=== PATIENT | female | born 1990 | race Caucasian/White ===

== ENCOUNTER → 2018-10-14 14:14 | Outpatient (CLI) | payer OTHER, SELFPAY ==
[2018-10-14 15:10] LABS: Glucose 78 mg/dL (70-100)
[2018-10-14 15:33] LABS: Appearance Urine UA CLEAR; Bilirubin Urine UA NEGATIVE (NEGATIVE); Color Urine UA YELLOW; Glucose Urine UA NEGATIVE (Negative); Ketones Urine UA NEGATIVE (NEGATIVE); Leukocyte Esterase Urine UA 2+ (NEGATIVE); Nitrite Urine UA NEGATIVE (Negative); Occult Blood Urine UA NEGATIVE (Negative); Protein Urine UA NEGATIVE (Negative); Specific Gravity Urine UA <=1.005 (1.000-1.035); Urobilinogen Urine UA 0.2 E.U./dL (0.2)
[2018-10-14 15:46] LABS: RBC Urine None Seen (0-5/HPF)
[2018-10-14 15:47] LABS: Amorphous Sediment Urine 1+; Bacteria Urine Few (2-10); Squamous Epithelial Cell Urine 0-1 /HPF; WBC Urine 1-5/HPF (0-5/HPF)
[2018-10-14 16:56] LABS: Hepatitis B Surface Antigen NEGATIVE s/c (NEGATIVE); Rubella Antibody IgG 1.2 IU/mL (>15)
[2018-10-14 17:03] LABS: HIV 1 and 2 Antibody NEGATIVE (NEGATIVE); Hep C Virus Ab w/Reflex Quant NEGATIVE s/c (NEGATIVE)
[2018-10-14 17:24] LABS: Add Manual Diff / Slide Review NO; Basophils Absolute Auto 0 /uL (0-100); Basophils Percent Auto 0.3 % (0-2); Eosinophils Absolute Auto 200 /uL (0-450); Hematocrit 40.2 % (36-46); Hemoglobin 13.3 g/dL (12.0-16.0); Lymphocytes Absolute Auto 1900 /uL (1100-4500); Lymphocytes Percent Auto 20.9 % (25-40); Mean Corpuscular Hemoglobin 28.7 PG (26-34); Mean Corpuscular Volume 86.9 fL (80-100); Monocytes Absolute Auto 600 /uL (0-900); Monocytes Percent Auto 6.7 % (3-14); Neutrophils Absolute Auto 6300 /uL (1500-7000); Neutrophils Percent Auto 70.1 % (50-75); Platelet Count 260 X10^3/uL (150-400); Red Blood Cell Count 4.62 X10^6/uL (4.0-5.2); Red Cell Distribution Width 13.3 % (11.6-14.8)
[2018-10-16 14:00] LABS: RPR Screen Nonreactive (Nonreactive)
== END ==
DX: Z34.01 Encounter for supervision of normal first pregnancy, first trimester (principal)
CPT/HCPCS: 36415; 80055; 81003; 81015; 82947; 83036; 86703; 86787; 86803; 86850; 86900; 86901; 87086

== ENCOUNTER → 2018-11-30 16:17 | Outpatient (CLI) | payer OTHER, SELFPAY ==
[2018-12-03 12:39] LABS: Sequential Screen 1st Trimeste FINAL RESULT PENDING
== END ==
DX: Z34.02 Encounter for supervision of normal first pregnancy, second trimester (principal); Z3A.13 13 weeks gestation of pregnancy
CPT/HCPCS: 36415; 84163; 84702

== ENCOUNTER → 2018-12-28 16:12 | Outpatient (CLI) | payer OTHER, SELFPAY ==
[2019-01-01 11:40] LABS: Sequential Screen 2nd Trimeste SCREEN NEGATIVE
== END ==
DX: Z34.82 Encounter for supervision of other normal pregnancy, second trimester (principal); Z3A.17 17 weeks gestation of pregnancy
CPT/HCPCS: 36415; 82105; 82677; 84163; 84702; 86336

== ENCOUNTER → 2019-03-05 12:37 | Outpatient (CLI) | payer OTHER, SELFPAY ==
[2019-03-05 14:22] LABS: Hematocrit 37.2 % (36-46); Hemoglobin 12.8 g/dL (12.0-16.0)
[2019-03-05 14:36] LABS: GTT (PREG) 1 Hour PP 50gm Dose 96 mg/dL (76-139)
== END ==
DX: O26.899 Other specified pregnancy related conditions, unspecified trimester (principal); Z67.91 Unspecified blood type, Rh negative
CPT/HCPCS: 36415; 82950; 85014; 85018; 86850

== ENCOUNTER → 2019-04-30 15:26 | Outpatient (CLI) | payer OTHER, SELFPAY ==
[2019-05-01 13:20] LABS: Strep Grp B PCR NEG for Grp B Strep
== END ==
DX: Z34.00 Encounter for supervision of normal first pregnancy, unspecified trimester (principal); Z3A.35 35 weeks gestation of pregnancy
CPT/HCPCS: 87653

== ENCOUNTER 2019-06-04 19:59 | Inpatient (IN) | payer OTHER, SELFPAY ==
[2019-06-04] MEDS: miSOPROStoL 25 MCG TABLET VAG (21:10)
[2019-06-04 21:15] LABS: Add Manual Diff / Slide Review NO; Basophils Absolute Auto 0 /uL (0-100); Basophils Percent Auto 0.5 % (0-2); Eosinophils Absolute Auto 100 /uL (0-450); Hematocrit 37.4 % (36-46); Hemoglobin 13.2 g/dL (12.0-16.0); Lymphocytes Absolute Auto 1600 /uL (1100-4500); Lymphocytes Percent Auto 18.2 % (25-40); Mean Corpuscular HGB Conc 35.2 % (30-36); Mean Corpuscular Hemoglobin 30.6 PG (26-34); Mean Corpuscular Volume 87.1 fL (80-100); Monocytes Absolute Auto 500 /uL (0-900); Monocytes Percent Auto 5.8 % (3-14); Neutrophils Absolute Auto 6500 /uL (1500-7000); Neutrophils Percent Auto 74.5 % (50-75); Platelet Count 152 X10^3/uL (150-400); White Blood Cell Count 8.8 X10^3/uL (4.5-11.0)
[2019-06-05] MEDS: miSOPROStoL 25 MCG TABLET VAG (01:49)
[2019-06-05 02:26] VITALS: BP 127/74
--- NOTE | 2019-06-05 07:33 | P.HPOB_ITS ---
OB HPI History of Present Condition Chief complaint: : 1 Para: 0 Estimated Date of Delivery: 06/04/19 Estimated Gestational Age (weeks): 40 Narrative: Elizabeth Munoz is a 28 year old @40+1 admitted for induction overnight after being found to have oligohydramnios at her scheduled office visit yesterday. The patient denied any signs or symptoms of ROM, and denied VB, LOF, decreased movement, [place], visual changes, abdominal pain, fevers, chills, or any other complaints obstetrical or otherwise. The patient had no signs or symptoms of PIH, and had had an otherwise uncomplicated preg asia. She has no other contributory medical or surgical history. Evaluation Evaluation Laboratory results: Laboratory Tests 06/04/19 06/04/19 21:00 21:00 WBC 8.8 RBC 4.30 Hgb 13.2 Hct 37.4 MCV 87.1 MCH 30.6 MCHC 35.2 RDW 13.0 Plt Count 152 Neut % (Auto) 74.5 Lymph % (Auto) 18.2 L [place] % (Auto) 5.8 Eos % (Auto) 1.0 L Baso % (Auto) 0.5 Neut # (Auto) 6500 Lymph # (Auto) 1600 [place] # (Auto) 500 Eos # (Auto) 100 Baso # (Auto) 0 Blood Type O Negative Antibody Screen Negative GBS not collected in . PFSH Family History Mother History of hysterectomy Social History Smoking Status: Never smoker Meds Home Medications and Allergies Home Medications Medication Instructions Recorded Confirmed Type prenat.vits,mike,aqp-znxs-fufxj 1 tab PO DAILY 10/14/18 10/14/18 History breast pump #1 each 04/16/19 04/16/19 Rx Allergies Allergy/AdvReac Type Severity Reaction Status Date / Time No Known Drug Allergies Allergy Verified 10/14/18 14:19 Review of Systems Review of Systems Narrative: ROS negative as per HPI during office visit and on initial admission to Center. At time of this morning's evaluation, patient in transition to second stage during unmedicated labor, and only OB ROS repeated due to patient status. ROS Unobtainable: other Cardiovascular Cardiovascular: Reports system reviewed; no additional complaints, except as documented Respiratory Respiratory: Reports system reviewed and no additional complaints, except as documented Gastrointestinal Gastrointestinal: Reports system reviewed and no additional complaints, except as documented Genitourinary Genitourinary: Reports system reviewed and no additional complaints, except as documented Musculoskeletal Musculoskeletal: Reports system reviewed; no additional complaints, except as documented Neurologic Neurologic: Reports system reviewed and no additional complaints, except as documented Exam Vital Signs (past 8 hours): - 06/05/19 02:26 Blood Pressure 127/74 127-138/74, HR 65-87, 36.6 C Const General: cooperative, healthy appearing and comfortable Resp Auscultation: clear to auscultation bilaterally Cardio Rate: regular rate Rhythm: regular rhythm GI Palpation: soft and No tender External Female Exam: external appearance normal and normal appearance of the urethra OB/External & Speculum: deferred, external exam normal, no bleeding and no herpetic lesions Manual OB Exam: dilated 1, effaced 50%, station -2 and other (soft, mid position) Uterus Location (Fundal Height): 37 Presentation: vertex Estimated Weight (lbs): 7 Amniotic Fluid: no fluid Other: EFW 7#8. Cat 2 EFM intermittently overnight for rare late decelerations, but largely cat 1, reactive, baseline 140. ctx no q2-4 s/p 2 doses v cytotec, no pitocin. Objective Labs Result Diagrams: 06/04/19 21:00 Labs: Laboratory Results - last 24 hr 06/04/19 06/04/19 21:00 21:00 WBC 8.8 RBC 4.30 Hgb 13.2 Hct 37.4 MCV 87.1 MCH 30.6 MCHC 35.2 RDW 13.0 Plt Count 152 Neut % (Auto) 74.5 Lymph % (Auto) 18.2 L [place] % (Auto) 5.8 Eos % (Auto) 1.0 L Baso % (Auto) 0.5 Neut # (Auto) 6500 Lymph # (Auto) 1600 [place] # (Auto) 500 Eos # (Auto) 100 Baso # (Auto) 0 Blood Type O Negative Antibody Screen Negative Assessment and Plan Assessment and Plan Assessment and Plan narrative: This patient is admitted for induction of labor for oligohydramnios, now progressed to the second stage of labor after 2 doses of vaginal cytotec and SROM for minimal clear fluid. Anticipate vaginal delivery. - No note of GBS status, no ppx as patient at term - Routine intrapartum care
[2019-06-05] MEDS: LACTATED RINGERS 1,000 ML 100 ML IV (07:45)
[2019-06-05] MEDS: LIDOCAINE 1% 20 ML (08:10)
--- NOTE | 2019-06-05 08:44 | PM.OBPRVD ---
 Events: Oligohydramnios Labor & Delivery Delivery date: 06/05/19 Intrapartal events: Acceleration Cervical ripening method: per misoprostal protocol Induction method: none Delivery monitor: external FHT Route of delivery: L&D Laceration Description: Periurethral - 1st Degree and Perineal - 2nd Degree Delivery repair: vicryl Estimated blood loss (mL): 350 Anesthesia type: None Narrative: This patient is a 28-year-old G1 now P1 status post uncomplicated vaginal delivery of a healthy baby boy. The patient presented to clinic yesterday for routine follow-up at 40 weeks 0 days gestation, was found have oligohydramnios with an CHARLENE of 1.5. The patient was directed to Labor and delivery, where she was successfully induced with 2 doses of vaginal Cytotec, after which she labored without augmentation. The patient progressed to fully dilated and pushed for 2 contractions, delivering a healthy baby boy with a body cord x2 without any other complications. The shoulders delivered with ease. An extensive second-degree perineal laceration was repaired with 2 0 Vicryl in the usual fashion. Rectal exam confirmed an intact sphincter. There were no other intrapartum or immediate complications. [place] Baby 1: Infant gender: Male Presentation: vertex position: Left Occiput Transverse Placenta delivery description: Spontaneous cord vessel description: Around Body x2 score (1 min): 8 score (5 min): 9 Narrative: cried at delivery, skin to skin with mom without issue. Plan for aftercare: The patient had otherwise an uncomplicated , and is for routine care.
[2019-06-05] MEDS: DERMOPLAST SPRAY 20% 60 ML 1 SPRAY TOP (09:21)
[2019-06-05] MEDS: IBUPROFEN 600 MG TABLET PO ×3 (09:21→23:36)
[2019-06-06 07:38] LABS: Add Manual Diff / Slide Review NO; Basophils Absolute Auto 0 /uL (0-100); Basophils Percent Auto 0.3 % (0-2); Eosinophils Absolute Auto 100 /uL (0-450); Eosinophils Percent Auto 1.2 % (2-4); Hematocrit 29.5 % (36-46); Hemoglobin 10.3 g/dL (12.0-16.0); Lymphocytes Absolute Auto 1600 /uL (1100-4500); Lymphocytes Percent Auto 15.6 % (25-40); Mean Corpuscular Hemoglobin 30.7 PG (26-34); Mean Corpuscular Volume 87.5 fL (80-100); Monocytes Absolute Auto 600 /uL (0-900); Monocytes Percent Auto 5.9 % (3-14); Neutrophils Absolute Auto 7800 /uL (1500-7000); Platelet Count 137 X10^3/uL (150-400); Red Blood Cell Count 3.37 X10^6/uL (4.0-5.2); White Blood Cell Count 10.1 X10^3/uL (4.5-11.0)
[2019-06-06] MEDS: IBUPROFEN 600 MG TABLET PO (08:54)
--- NOTE | 2019-06-06 10:32 | P.PNOB_ITS ---
Subjective - OB Subjective Patient comments: no complaints [place] baby status: other (tachypnia overnight now resolved, evaluated for ?TTN) Date Patient Seen: 06/06/19 Time Patient Seen: 10:33 Exam Vital Signs (past 8 hours): 135/83, 100, 36.4 Const General: cooperative, healthy appearing and comfortable Resp Effort & Inspection: normal respiratory effort Auscultation: clear to auscultation bilaterally Cardio Rate: regular rate Rhythm: regular rhythm GI Palpation: soft Rectal Exam: No tenderness External Female Exam: external appearance normal and exteral laceration (Laceration well approximated, no erythema, no drainage. Sutures intact. ) Uterus Location (Fundal Height): 3 (Fundus firm and well below u) Extrem Other: 1+ edema on both lower extremities, symmetrical bilaterally Objective Labs Result Diagrams: 06/06/19 07:31 Labs: Laboratory Results - last 24 hr 06/06/19 06/06/19 07:31 07:31 WBC 10.1 RBC 3.37 L Hgb 10.3 L Hct 29.5 L MCV 87.5 MCH 30.7 MCHC 35.0 RDW 13.0 Plt Count 137 L Neut % (Auto) 77.0 H Lymph % (Auto) 15.6 L [place] % (Auto) 5.9 Eos % (Auto) 1.2 L Baso % (Auto) 0.3 Neut # (Auto) 7800 H Lymph # (Auto) 1600 [place] # (Auto) 600 Eos # (Auto) 100 Baso # (Auto) 0 Maternal Bleed Negative Assessment & Plan Assessment and Plan (1) Vaginal delivery: Status: Acute Assessment and plan: This patient is recovering well from her vaginal delivery, after an induction of labor at 40 weeks for oligohydramnios. The patient is meeting all goals including good pain control, moderate lochia, tolerating p.o., voiding and passing flatus normally, ambulating appropriately, and with no other concerns or complaints. We discussed plan of care and precautions for return, the patient vocalized understanding. The patient is being assess for the need for RhoGAM prior to discharge. Patient will follow up in clinic in 4-6 weeks, or as needed with any concerns. Discussed the patient can contact the clinic or the physician on-call, or present to the emergency room as necessary. -patient for discharge today -routine care Current Visit: Yes Plan day: 1 plan OB: routine care Time Spent With Patient Time: Total time spent is greater than 50% in coordination of care (as documented) at patient's floor/unit and/or counseling patient: Time with patient: 15-24 minutes
--- NOTE | 2019-06-06 10:49 | PM.DS.1 ---
History of Present Illness History of Present Illness Date Patient Seen: 06/06/19 Time Patient Seen: 10:49 Chief complaint: maternity Narrative: This patient is a 20-year-old G1 now P1 admitted for induction of labor at 40 weeks for oligohydramnios. The patient underwent an uncomplicated vaginal delivery with repair of a second-degree perineal laceration, and is recovering well on day 1. Patient will be discharged with routine precautions. Discharge Providers Provider Date of admission: 06/04/19 19:59 Discharge Date: 06/06/19 Primary care physician: Miguel Foster MD Discharge provider: Nela Mcghee MD Summary Hospital Course Discharge Diagnosis: Vaginal delivery Hospital Course: See HPI Status at Discharge Cognitive/behavioral status at discharge: at baseline, oriented Functional status at discharge: independent ambulation Time Spent with Patient Time spent: Less than 30 minutes Exam Vital Signs (past 8 hours): See progress note from day of discharge. Objective Labs Result Diagrams: 06/06/19 07:31 Labs: Laboratory Results - last 24 hr 06/06/19 06/06/19 07:31 07:31 WBC 10.1 RBC 3.37 L Hgb 10.3 L Hct 29.5 L MCV 87.5 MCH 30.7 MCHC 35.0 RDW 13.0 Plt Count 137 L Neut % (Auto) 77.0 H Lymph % (Auto) 15.6 L [place] % (Auto) 5.9 Eos % (Auto) 1.2 L Baso % (Auto) 0.3 Neut # (Auto) 7800 H Lymph # (Auto) 1600 [place] # (Auto) 600 Eos # (Auto) 100 Baso # (Auto) 0 Maternal Bleed Negative Discharge Plan Discharge Plan Patient Disposition: Home Discharge Med Rec/Prescriptions Prescriptions: Continued prenat.vits,mike,jkf-kkek-bfgzq tablet 1 tab PO DAILY RF: 0 (DME) breast pump [Pump In Style Advanced] device See Rx Instructions [id number] .MEDSUPPLY Qty: 1 RF: 0 Follow up/Referrals: Miguel Foster MD [Primary Care Provider] - 1 Month Provider Discharge Instructions Diet: Regular Activity: Nothing in the vagina for 6 weeks. Avoid heavy lifting for 6 weeks. If you developed increased bleeding soaking more than 2 pads per hour, fevers, chills, drainage, increasing abdominal pain, headaches, spots in her vision, chest pain, or any other symptoms or concerns, call the office number or come to the emergency room. Skin/Wound/Dressing Care Skin care: Keep perineum clean and dry. Report to your healthcare provider any signs of infection, such as:: chills, fever, night sweats, increased pain, unusual drainage and unusual redness Discharge Data Primary Care Provider: Miguel Foster
[2019-06-06 14:10] VITALS: BP 127/74; PULSE 102; RESP 19; TEMP 36.7
[2019-06-06] MEDS: RHO(D) IMMUNE GLOBULIN 1,500 UNIT SYRINGE 1500 UNIT IM (15:14)
== END 2019-06-06 16:04 | disposition home or self-care (01) | DRG 807 ==
PROVIDERS: Obstetrics & Gynecology; Admitting Provider Obstetrics & Gynecology; Visit Provider Obstetrics & Gynecology
DX: O41.03X0 Oligohydramnios, third trimester, not applicable or unspecified (principal); Z37.0 Single live birth; Z3A.40 40 weeks gestation of pregnancy; O70.1 Second degree perineal laceration during delivery
CPT/HCPCS: 59050; 59200; 59400; 59409; 85025; 85461; 86850; 86900; 86901; G0379; J2790

== ENCOUNTER 2019-12-17 15:46 | Emergency (ER) | payer OTHER, SELFPAY ==
[2019-12-17 15:57] VITALS: BP 119/72; PULSE 72; RESP 16; TEMP 36.8; O2SAT 99; BMI 30.8
--- NOTE | 2019-12-17 16:21 | ED.ABDPAIN ---
HPI - Abdominal Pain <KIMBERLY Purvis - Last Filed: 12/17/19 18:34> General Chief Complaint: Abdominal Pain Stated Complaint: galbladder issues, sent by physician Time Seen by Provider: 12/17/19 16:13 Source: patient Mode of arrival: Family Vehicle Limitations: no limitations History of Present Illness HPI narrative: The patient is a 29-year-old female nonsmoker presents with her for chief complaint of abdominal pain and gallbladder issues. She was seen at a walk-in clinic and [place] and sent to the emergency department for evaluation of possible acute cholecystitis. She had an ultrasound on lab work, which were faxed in. Patient demonstrates no leukocytosis, bilirubin of 1.9. She also of 204. A CBD of 8.1. As well as multiple gallstones. She denies any fevers. Complains of nausea, no vomiting. She states that she last had anything any head pain a.m., last water at noon. Patient is breast-feeding at this time she is 6 months . Related Data Home Medications Medication Instructions Recorded Confirmed prenat.vits,mike,rkr-ywly-erdzl 1 tab PO DAILY 10/14/18 12/15/19 Previous Rx's Medication Instructions Recorded breast pump #1 each 04/16/19 hydrocodone-acetaminophen [[place]] 1 tab PO Q4-6H PRN #14 tab 12/17/19 ondansetron 4 mg PO Q6H PRN #20 tab 12/17/19 Allergies Allergy/AdvReac Type Severity Reaction Status Date / Time No Known Drug Allergies Allergy Verified 12/17/19 16:04 Patient History <KIMBERLY Purvis - Last Filed: 12/17/19 18:34> Medical History Acute bilateral low back pain without sciatica (Acute) Pelvic somatic dysfunction (Acute) Segmental and somatic dysfunction of abdomen and other regions (Acute) Segmental and somatic dysfunction of lumbar region (Acute) Segmental and somatic dysfunction of sacral region (Acute) Segmental and somatic dysfunction of thoracic region (Acute) Family History Mother History of hysterectomy Social History Smoking Status: Never smoker Smoking Status: Never smoker alcohol intake frequency: holidays/special occasions only Substance Use Type: does not use Exam <KIMBERLY Purvis - Last Filed: 12/17/19 18:34> Narrative Exam Narrative: GENERAL: This is a well-nourished, well-developed patient, no acute distress HEAD: Atraumatic. Normocephalic. No temporal or scalp tenderness. EYES: Pupils equal round and reactive. Extraocular motions intact. No scleral icterus. No injection or drainage. ENT: Nose without bleeding, purulent drainage or septal hematoma. Throat without erythema, tonsillar hypertrophy or exudate. Uvula midline. Airway patent. NECK: Trachea midline. No JVD or lymphadenopathy. Supple, nontender, no meningeal signs. CARDIOVASCULAR: Regular rate and rhythm RESPIRATORY: Clear to auscultation. Breath sounds equal bilaterally. No wheezes, rales, or rhonchi. GASTROINTESTINAL: Abdomen soft, tenderness right upper quadrant with slight guarding, nondistended. No hepato-splenomegaly, or palpable masses. Active bowel sounds all 4 quadrants EXTREMITIES: No clubbing, cyanosis, or edema. No joint tenderness, effusion, or edema noted. BACK: Nontender without deformity or crepitance. No flank tenderness. NEURO: AOx3. SKIN: No rash or erythema visible skin Initial Vital Signs Initial Vital Signs: Vital Signs Temperature 98.3 F 12/17/19 15:57 Pulse Rate 72 12/17/19 15:57 Respiratory Rate 16 12/17/19 15:57 Blood Pressure 119/72 12/17/19 15:57 Pulse Oximetry 99 12/17/19 15:57 <Humberto Latham MD - Last Filed: 12/19/19 15:19> Initial Vital Signs Initial Vital Signs: Vital Signs Temperature 98.3 F 12/17/19 15:57 Pulse Rate 72 12/17/19 15:57 Respiratory Rate 16 12/17/19 15:57 Blood Pressure 119/72 12/17/19 15:57 Pulse Oximetry 99 12/17/19 15:57 Scores <KIMBERLY Purvis - Last Filed: 12/17/19 18:34> GCS Luc[place] coma scale eye opening: Spontaneous [place] coma scale verbal response: Orientated Luc[place] coma scale motor response: Obey commands Luca coma scale total score: 15 Course <PRABHJOT Purvis-BC - Last Filed: 12/17/19 18:34> Consultations Consultation #1: Dr Jacome in to see patient Time: 16:21 Vital Signs Vital signs: Vital Signs - 8 hr 12/17/19 15:57 12/17/19 18:10 Temperature 98.3 F Pulse Rate 72 69 Respiratory Rate 16 18 Blood Pressure 119/72 134/76 Pulse Oximetry 99 96 <Humberto Latham MD - Last Filed: 12/19/19 15:19> Vital Signs Vital signs: Vital Signs - 8 hr 12/17/19 15:57 12/17/19 18:10 Temperature 98.3 F Pulse Rate 72 69 Respiratory Rate 16 18 Blood Pressure 119/72 134/76 Pulse Oximetry 99 96 MDM - Abdominal Pain <PRABHJOT Purvis-BC - Last Filed: 12/17/19 18:34> MDM Narrative Medical decision making narrative: The patient is a 29-year-old female who presents for chief complaint of all bladder issues from an outside clinic. She presents with lab work and ultrasound already done. She was evaluated in the emergency department by Dr. Jacome from surgery, who offered to admit the patient for a cholecystectomy. However the patient elected to go home rather than come into the hospital as she is things such as like to take care of at home regarding her child. I discussed at length, illness, etcetera. Patient states understanding of all these risks, and states she had a conversation already with Dr. Yandy arias. I did give her prescription of pain and nausea medications. Discussed at length the importance of following up with her PCP as well as surgery. Patient has no questions or concerns upon discharge and states understanding of return precautions as well as follow-up care. Discussed very strict return precautions for this patient. Discharge Plan Departure Patient Disposition: Home Clinical Impression: Gall stones, Common bile duct dilatation, Epigastric pain, Transaminitis, Elevated alkaline phosphatase level, Elevated bilirubin Discharge Date/Time: 12/17/19 18:24 Instructions: Gallstones (Alternative Therapy), DI for Gallstones, DI for Abdominal Pain-Adult Activity Restrictions/Additional Instructions: Thank you for trusting us with your care today Please follow-up with [facility] and Dr. Jacome. I have included the contact information below. I sent pain and nausea medications to [facility] in [place] Please come back to the emergency department for any acute concerns including fever, inability keep down fluids, sudden worsening pain etcetera. As discussed, your taking a risk by leaving the hospital without your gallbladder surgery today. However please come back to the emergency department for any acute concerns. I also suggest following up with PCP. I have given you a prescription of a narcotic for pain. Be aware that this can be constipating and sedating. I encouraged taking with a stool softener, pushing fluids and fiber. Do not take and drive, operate heavy machinery, etc. Do not combine it with any other sedating substances such as alcohol. The combination of narcotics and alcohol and/or other sedatives can be lethal. Please be aware that we do not provide refills of controlled substances in the emergency department. Please follow up with her primary care provider. Prescriptions: New hydrocodone-acetaminophen [[place]] 5-325 mg tablet 1 tab PO Q4-6H PRN (Reason: pain) Qty: 14 RF: 0 ondansetron 4 mg tablet,disintegrating 4 mg PO Q6H PRN (Reason: nausea and vomiting) Qty: 20 RF: 0 No Action prenat.vits,mike,kjk-kslg-[id number] tablet 1 tab PO DAILY RF: 0 (DME) breast pump [Pump In Style Advanced] device See Rx Instructions [id number] .MEDSUPPLY Qty: 1 RF: 0 Referrals: [facility] [Provider Group] Patricia Jacome MD [Physician] -
--- NOTE | 2019-12-17 16:40 | PM.HP.1 ---
History of Present Illness History of Present Illness Date Patient Seen: 12/17/19 Time Patient Seen: 16:40 Chief complaint: galbladder issues, sent by physician Narrative: This is a 29 yo woman who is six months out from [facility] of a healthy baby. She has had new colicky epigastric and mid upper back pain for the past 3-4 months. The pain is sharp and burning, it comes on in the middle of the night, or sometimes after eating. Today the pain came on after eating a breakfast of three scrambled eggs with cheese. She denies any fevers or nausea associated with these attacks. She went to urgent care today to be seen for her pain. She had an US and labs done which revealed gall stones, a CBD of 8.1mm, and elevated LFT's, alk phos of 204, and bilirubin of 1.9. Her pain has improved since she had some pain medicine at the urgent care. ROS: She is breast feeding. 13 system review is otherwise negative other than as mentioned in HPI and below. PMH: She denies other medical problems. PSH: Past surgeries include only wisdom teeth extraction. Meds: She takes vitamin and pain medication given for this symptom. Allergies: She denies any allergies. ' FMH: She denies family history of biliary disorders. SOC: She denies tobacco use; reports occasional EtOH, denies any illicit drug use. PE: GENERAL: Alert, comfortable. Appears stated age. Answers questions promptly and appropriately. Vital signs noted. HENT: Normocephalic, atraumatic. Hearing intact. No jaundice EYES: Conjunctiva pink, sclera white, no periorbital swelling. CARDIOVASCULAR: Regular rate. No pedal edema. RESPIRATORY: Non-tachypneic, breathing comfortably on room air. GASTROINTESTINAL: Abdomen soft and non-distended; rounded; mild epigastric TTP; no masses; no surgical scars GENITALURINARY: No flank tenderness. MUSCULOSKELETAL: Equal tone and mass bilaterally. SKIN: Warm, dry, soft, appropriate color for ethnicity. No other lesions, rashes, or wounds. NEURO: Alert and Oriented X 3. No gross sensory deficits, or cognitive issues. PSYCH: Appropriate affect and mood. Patient History Medical History Acute bilateral low back pain without sciatica (Acute) Pelvic somatic dysfunction (Acute) Segmental and somatic dysfunction of abdomen and other regions (Acute) Segmental and somatic dysfunction of lumbar region (Acute) Segmental and somatic dysfunction of sacral region (Acute) Segmental and somatic dysfunction of thoracic region (Acute) Family & Social History Family History Mother History of hysterectomy Safety & Behavioral: Feels Safe in Current Yes Environment Been Physically Hurt or No Threatened By a Person Tobacco & Substance use: Smoking Status Never smoker alcohol intake frequency holiday/special occasion Substance Use Type does not use Meds Home Medications and Allergies Home Medications Medication Instructions Recorded Confirmed Type prenat.vits,mike,cvu-udqn-dxzcc 1 tab PO DAILY 10/14/18 12/15/19 History breast pump #1 each 04/16/19 12/15/19 Rx Allergies Allergy/AdvReac Type Severity Reaction Status Date / Time No Known Drug Allergies Allergy Verified 12/17/19 16:04 Exam Vital Signs (past 8 hours): - 12/17/19 15:57 Temperature 98.3 F Pulse Rate 72 Respiratory Rate 16 Blood Pressure 119/72 Pulse Oximetry 99 Oxygen Delivery Method Room Air Objective Imaging US - abdomen: My impression: RUQ US: gall stones, GB wall thickness 6mm; CBD 8.1mm Radiologist's impression: RUQ US: gall stones, GB wall thickness 6mm; CBD 8.1mm; negative sonographic miller sign Labs Labs: Outside labs reviewed and uploaded in system. Normal WBC Elevated transaminases Alk phos 204 Bilirubin 1.9 Assessment & Plan Assessment and plan (1) Gall stones: Problem details: The patient's exam and labs are consistent with acute on chronic cholelithiasis with possible choledocholithiasis. I had a long discussion with the patient and her regarding her condition. We reviewed risks and benefits of laparoscopic, possible open cholecystectomy. I karen them pictures and answered their questions. Risks of bleeding, infection, damage to nearby structures, need for additional procedures, need for ERCP, need for transfer to tertiary hospital, cholangitis, liver failure were discussed. I explained that her labs are concerning for possible common bile duct stones. We would need to repeat labs in the morning to make sure she isn't showing signs of obstruction. Depending on the lab results she may need an MRI and may need transfer to another hospital for ERCP. If her labs are fine, she would likely be able to go home by tomorrow afternoon. Plan: Rapid covid test Urine HCG OR this PM for lap vicki Addendum: the patient has decided that she does not want to have surgery this evening. She would like to schedule it for a future time. I have explained the risks of ongoing or worsening pain, CBD obstruction, ascending cholangitis, jaundice, need for emergency surgery prior to scheduled surgery can be done. I have recommended that if her symptoms worsen she should return to the ER. She will likely need pain med and anti emetic. She should call the [facility] office on Friday and ask to have surgery scheduled. She will need a repeat CMP prior to surgery as well as covid testing 72 hours prior to scheduled surgery day. Current visit: Yes Status: Acute (2) Common bile duct dilatation: Current visit: Yes Status: Acute (3) Epigastric pain: Current visit: Yes Status: Acute (4) Transaminitis: Current visit: Yes Status: Acute (5) Elevated alkaline phosphatase level: Current visit: Yes Status: Acute (6) Elevated bilirubin: Current visit: Yes Status: Acute Quality VTE Deep Vein Thrombosis/Pulmonary Embolism Present on Admission: No
[2019-12-17 18:10] VITALS: BP 134/76; PULSE 69; RESP 18; O2SAT 96
== END 2019-12-17 18:24 | disposition home or self-care (01) ==
PROVIDERS: Emergency Provider Nurse Practitioner Family
DX: K80.80 Other cholelithiasis without obstruction (principal); R74.0 Nonspecific elevation of levels of transaminase and lactic acid dehydrogenase [LDH]; E80.7 Disorder of bilirubin metabolism, unspecified; R74.8 Abnormal levels of other serum enzymes
CPT/HCPCS: 36415; 99283; 99284

== ENCOUNTER 2019-12-21 21:22 | Emergency (ER) | payer OTHER, SELFPAY ==
[2019-12-21 21:30] VITALS: BP 133/96; PULSE 92; RESP 20; TEMP 36.9; O2SAT 96
--- NOTE | 2019-12-21 21:34 | DI.RAD.S_ITS ---
PROCEDURE: XR CHEST 1V INDICATIONS: Shortness of breath TECHNIQUE: One view of the chest was acquired. COMPARISON: None. FINDINGS: Surgical changes and devices: None. Lungs and pleura: Lungs are clear. No pleural effusions or pneumothorax. Mediastinum: Mediastinal contours appear normal. Heart size is normal. Bones and chest wall: No suspicious bony lesions. Overlying soft tissues appear unremarkable. IMPRESSION: No acute cardiopulmonary disease process. Dictated by: Ursula Reveles MD, PhD on 12/22/2019 at 7:59 Approved by: Ursula Reveles MD, PhD on 12/22/2019 at 8:03
[2019-12-21 22:03] LABS: Alanine Aminotransferase 339 IU/L (<35); Albumin 4.8 g/dL (3.5-5.0); Albumin Globulin Ratio 1.3 (1.0-2.8); Alkaline Phosphatase 290 U/L (38-126); Aspartate Aminotransferase 141 IU/L (14-36); Bilirubin Total 2.6 mg/dL (0.2-1.3); Blood Urea Nitrogen 8 mg/dL (7-17); Calcium 10.2 mg/dL (8.4-10.2); Carbon Dioxide 26 mmol/L (22-32); Chloride 102 mmol/L (98-107); Estimated Glomerular Filt Rate > 60.0 mL/min (>60); Globulin 3.7 g/dL (1.7-4.1); Glucose 115 mg/dL (70-100); HEMOLYSIS < 15 (0-50); Lipase 123 U/L (23-300); Sodium 139 mmol/L (137-145); Total Protein 8.5 g/dL (6.3-8.2)
[2019-12-21 22:08] LABS: Add Manual Diff / Slide Review NO; Basophils Absolute Auto 0 /uL (0-100); Basophils Percent Auto 0.5 % (0-2); Eosinophils Absolute Auto 200 /uL (0-450); Eosinophils Percent Auto 3.4 % (2-4); Hematocrit 41.3 % (36-46); Hemoglobin 14.1 g/dL (12.0-16.0); Lymphocytes Absolute Auto 1600 /uL (1100-4500); Lymphocytes Percent Auto 29.6 % (25-40); Mean Corpuscular Hemoglobin 29.6 PG (26-34); Monocytes Absolute Auto 600 /uL (0-900); Monocytes Percent Auto 11.2 % (3-14); Neutrophils Absolute Auto 2900 /uL (1500-7000); Neutrophils Percent Auto 55.3 % (50-75); Platelet Count 259 X10^3/uL (150-400); Red Blood Cell Count 4.75 X10^6/uL (4.0-5.2); Red Cell Distribution Width 13.9 % (11.6-14.8); White Blood Cell Count 5.3 X10^3/uL (4.5-11.0)
--- NOTE | 2019-12-21 22:32 | ED.GENADULT ---
HPI - General Adult General Chief complaint: Upper Respiratory Symptoms Stated complaint: SOB Time Seen by Provider: 12/21/19 21:33 Source: patient Mode of arrival: Ambulatory Limitations: no limitations History of Present Illness HPI narrative: 29-year-old female 3 days status post laparoscopic cholecystectomy performed at an outside facility. Was discharged a day later. She is here in the emergency department today because she states that she went up a flight of stairs and when she got to the top she felt like she could not catch her breath. She is not having any abdominal pain or vomiting. No fevers. Currently her symptoms have greatly improved however she does state that it is somewhat more difficult for her to take a deep breath. She denies any chest pain. States the symptoms did improve when she sat down and rested earlier this evening. She is here in the emergency department because she states that she read on the discharge instructions that she has chest pain shortness of breath she should come to the emergency department for evaluation Related Data Home Medications Medication Instructions Recorded Confirmed prenat.vits,mike,[id number] 1 tab PO DAILY 10/14/18 12/15/19 Previous Rx's Medication Instructions Recorded breast pump #1 each 04/16/19 hydrocodone-acetaminophen [Keatchie] 1 tab PO Q4-6H PRN #14 tab 12/17/19 ondansetron 4 mg PO Q6H PRN #20 tab 12/17/19 Allergies Allergy/AdvReac Type Severity Reaction Status Date / Time No Known Drug Allergies Allergy Verified 12/17/19 16:04 Review of Systems Constitutional Constitutional: Denies fever(s) Cardiovascular Cardiovascular: Denies chest pain and Reports dyspnea on exertion Respiratory Respiratory: Reports dyspnea on exertion Gastrointestinal Gastrointestinal: Denies abdominal pain, Denies nausea and Denies vomiting Integumentary/Breasts Comments: No complaints the abdominal incision wounds Neurologic Neurologic: Denies behavioral changes Psychiatric Psychiatric: Denies behavioral changes Hematologic/Lymphatic Hematologic/Lymphatic: Denies easy bleeding and Denies easy bruising Patient History Medical History Acute bilateral low back pain without sciatica (Acute) Pelvic somatic dysfunction (Acute) Segmental and somatic dysfunction of abdomen and other regions (Acute) Segmental and somatic dysfunction of lumbar region (Acute) Segmental and somatic dysfunction of sacral region (Acute) Segmental and somatic dysfunction of thoracic region (Acute) Social History Smoking Status: Never smoker Smoking Status: Never smoker alcohol intake frequency: holidays/special occasions only Substance Use Type: does not use Exam Initial Vital Signs Initial Vital Signs: Vital Signs Temperature 98.4 F 12/21/19 21:30 Pulse Rate 92 H 12/21/19 21:30 Respiratory Rate 20 12/21/19 21:30 Blood Pressure 133/96 H 12/21/19 21:30 Pulse Oximetry 96 12/21/19 21:30 Const General: cooperative, comfortable, well developed and well groomed Limitations: mental status not altered HENMT Head: normal to inspection and normocephalic Resp Effort & Inspection: normal respiratory effort Auscultation: clear to auscultation bilaterally Cardio Rate: regular rate Rhythm: regular rhythm Skin Lesions: no lesions Rashes: no rashes Neuro General: alert and awake Cognition: normal cognition Speech: speech normal Extrem General: normal to inspection and capillary refill normal Psych Appearance: grossly normal and well kempt Scores GCS Luca coma scale eye opening: Spontaneous Patterson coma scale verbal response: Orientated Luca coma scale motor response: Obey commands Patterson coma scale total score: 15 PERC Score Age greater than or equal to 50 years: No Heart rate greater than or equal to 100 bpm: No Room Air O2 Sat less than 95%: No Unilateral leg swelling: No Recent trauma or surgery: Yes Hemoptysis: No Prior PE or DVT: No Hormone Use: No Total PERC Score: 1 Course Orders Ordered: ED Orders 12/21/19 21:25 Complete Blood Count AUTO DIFF Stat Comprehensive Metabolic Panel Stat D Dimer Stat Lipase Stat 12/21/19 21:34 XR chest 1V Stat EKG-12 Lead Stat Vital Signs Vital signs: Vital Signs - 8 hr 12/21/19 21:30 12/21/19 23:09 Temperature 98.4 F Pulse Rate 92 H 90 Respiratory Rate 20 15 Blood Pressure 133/96 H 129/95 H Pulse Oximetry 96 97 Medical Decision Making Lab Data Lab results reviewed: Yes I reviewed the patient's lab results. Result diagrams: 12/21/19 21:25 12/21/19 21:25 Labs: Lab Results 12/21/19 12/21/19 12/21/19 Range/Units 21:25 21:25 21:25 WBC 5.3 (4.5-11.0) X10^3/uL RBC 4.75 (4.0-5.2) X10^6/uL Hgb 14.1 (12.0-16.0) g/dL Hct 41.3 (36-46) % MCV 87.0 (80-100) fL MCH 29.6 (26-34) PG MCHC 34.0 (30-36) % RDW 13.9 (11.6-14.8) % Plt Count 259 (150-400) X10^3/uL Neut % (Auto) 55.3 (50-75) % Lymph % (Auto) 29.6 (25-40) % Taney % (Auto) 11.2 (3-14) % Eos % (Auto) 3.4 (2-4) % Baso % (Auto) 0.5 (0-2) % Neut # (Auto) 2900 (4296-6836) /uL Lymph # (Auto) 1600 (9295-3647) /uL Taney # (Auto) 600 (0-900) /uL Eos # (Auto) 200 (0-450) /uL Baso # (Auto) 0 (0-100) /uL D-Dimer 448 H (<230) ng/mL Sodium 139 (137-145) mmol/L Potassium 4.0 (3.4-5.1) mmol/L Chloride 102 (98-107) mmol/L Carbon Dioxide 26 (22-32) mmol/L BUN 8 (7-17) mg/dL Creatinine 0.80 (0.52-1.04) mg/dL Estimated GFR > 60.0 (>60) mL/min BUN/Creatinine Ratio 10.0 (6-22) Glucose 115 H (70-100) mg/dL Calcium 10.2 (8.4-10.2) mg/dL Total Bilirubin 2.6 H (0.2-1.3) mg/dL AST 141 H (14-36) IU/L ALT 339 H (<35) IU/L Alkaline Phosphatase 290 H (38-126) U/L Total Protein 8.5 H (6.3-8.2) g/dL Albumin 4.8 (3.5-5.0) g/dL Globulin 3.7 (1.7-4.1) g/dL Albumin/Globulin Ratio 1.3 (1.0-2.8) Lipase 123 (23-300) U/L Imaging Data Chest x-ray: Attestation: I personally reviewed and interpreted this imaging study as follows: My Impression: No pneumonia, no pneumothorax, no acute pathology ECG Data Attestation: I personally reviewed and interpreted this ECG as follows: Prior ECG tracings: not available for review Interpretation: Sinus rhythm Ventricular rate is 70 Normal axis Normal QRS Normal QTC No ST T wave changes MDM Narrative Medical decision making narrative: Heart rate unremarkable, oxygen saturations unremarkable, D-dimer less than 500, EKG is unremarkable. Low suspicion for pulmonary embolism. Low suspicion for pneumonia. Patient does have an elevation in her LFTs and bilirubin however I do suspect that this is related to her recent surgery. She is not having any abdominal tenderness. No fevers. We did discuss these elevations together and inform the patient that she should talk with the operative surgeon regarding these to make sure that her bilirubin is improving. She states that it was elevated prior to her surgery. Feel we can hold on further workup for now. Patient was given return precautions follow-up instructions. She expressed understanding and agreement Discharge Plan Departure Patient Disposition: Home Clinical Impression: Shortness of breath Discharge Date/Time: 12/21/19 23:09 Instructions: DI for Shortness of Breath Activity Restrictions/Additional Instructions: Recommend you keep all of your scheduled medical appointments. Return to the emergency department for any new symptoms to include chest pain or worsening shortness of breath. Also return to the emergency department for worsening abdominal pain like we discussed. Prescriptions: No Action prenat.vits,mike,[id number] tablet 1 tab PO DAILY RF: 0 (DME) breast pump [Pump In Style Advanced] device See Rx Instructions [id number] .MEDSUPPLY Qty: 1 RF: 0 hydrocodone-acetaminophen [Keatchie] 5-325 mg tablet 1 tab PO Q4-6H PRN (Reason: pain) Qty: 14 RF: 0 ondansetron 4 mg tablet,disintegrating 4 mg PO Q6H PRN (Reason: nausea and vomiting) Qty: 20 RF: 0
[2019-12-21 22:47] LABS: D Dimer 448 ng/mL (<230)
[2019-12-21 23:09] VITALS: BP 129/95; PULSE 90; RESP 15; O2SAT 97
== END 2019-12-21 23:09 | disposition home or self-care (01) ==
PROVIDERS: Emergency Provider Emergency Medicine
DX: R06.02 Shortness of breath (principal); R79.89 Other specified abnormal findings of blood chemistry
CPT/HCPCS: 71045; 80053; 83690; 85025; 85379; 93005; 99283; 99284

== ENCOUNTER 2019-12-25 11:59 | Emergency (ER) | payer OTHER, SELFPAY ==
[2019-12-25 12:00] VITALS: BP 146/86; PULSE 91; RESP 16; TEMP 36.7; O2SAT 98; BMI 30.4
--- NOTE | 2019-12-25 12:08 | DI.US.S_ITS ---
PROCEDURE: US ABDOMEN LIMITED INDICATIONS: SEVERE EPIGASTRIC PAIN.RECENT CHOLECYSTECTOMY TECHNIQUE: Real-time focused scanning was performed of the abdomen, with image documentation. COMPARISON: [facility], US, US ABDOMEN COMPLETE, 12/17/2019, 12:49. FINDINGS: The gallbladder is surgically absent. The extrahepatic ducts are now dilated, previously measuring 3 mm at the common hepatic duct an 8 mm at the common bile duct, and currently measuring 9 mm with the common hepatic duct at 11 mm and the common bile duct. Dilated intrahepatic ducts. IMPRESSION: In this patient with recent cholecystectomy, a common duct stone may be present, as the patient has developed biliary ductal dilatation. Comment: MRCP may be helpful. Dictated by: Sivakumar Vidales M.D. on 12/25/2019 at 12:07 Approved by: Sivakumar Vidales M.D. on 12/25/2019 at 12:12
[2019-12-25] MEDS: KETOROLAC 60 MG/2 ML VIAL 15 MG IV (12:13)
[2019-12-25] MEDS: ONDANSETRON 4 MG/2 ML INJ IV (12:13)
[2019-12-25] MEDS: SODIUM CHLORIDE 0.9% 1,000 ML 1000 ML IV (12:13)
[2019-12-25 12:17] LABS: Add Manual Diff / Slide Review NO; Basophils Absolute Auto 100 /uL (0-100); Basophils Percent Auto 0.7 % (0-2); Eosinophils Absolute Auto 100 /uL (0-450); Eosinophils Percent Auto 1.8 % (2-4); Hematocrit 42.7 % (36-46); Hemoglobin 14.7 g/dL (12.0-16.0); Lymphocytes Absolute Auto 1000 /uL (1100-4500); Lymphocytes Percent Auto 13.8 % (25-40); Mean Corpuscular HGB Conc 34.4 % (30-36); Mean Corpuscular Volume 87.3 fL (80-100); Monocytes Absolute Auto 700 /uL (0-900); Monocytes Percent Auto 8.6 % (3-14); Neutrophils Absolute Auto 5700 /uL (1500-7000); Neutrophils Percent Auto 75.1 % (50-75); Platelet Count 283 X10^3/uL (150-400); Red Blood Cell Count 4.89 X10^6/uL (4.0-5.2); Red Cell Distribution Width 13.8 % (11.6-14.8); White Blood Cell Count 7.6 X10^3/uL (4.5-11.0)
[2019-12-25 12:36] LABS: Alanine Aminotransferase 431 IU/L (<35); Albumin 4.9 g/dL (3.5-5.0); Albumin Globulin Ratio 1.2 (1.0-2.8); Alkaline Phosphatase 451 U/L (38-126); Aspartate Aminotransferase 282 IU/L (14-36); BUN Creatinine Ratio 14.5 (6-22); Bilirubin Total 3.5 mg/dL (0.2-1.3); Blood Urea Nitrogen 11 mg/dL (7-17); Calcium 10.4 mg/dL (8.4-10.2); Carbon Dioxide 22 mmol/L (22-32); Chloride 102 mmol/L (98-107); Estimated Glomerular Filt Rate > 60.0 mL/min (>60); Globulin 4.1 g/dL (1.7-4.1); Glucose 132 mg/dL (70-100); HEMOLYSIS < 15 (0-50); Potassium 3.9 mmol/L (3.4-5.1); Sodium 139 mmol/L (137-145)
--- NOTE | 2019-12-25 12:41 | ED_ITS ---
HPI - Abdominal Pain General Chief Complaint: Abdominal Pain Stated Complaint: gallbladder surg friday/ sharp pain Time Seen by Provider: 12/25/19 12:00 Source: patient Mode of arrival: Ambulatory Limitations: no limitations History of Present Illness HPI narrative: 29F nonsmoker with chief complaint of severe epigastric pain over the last hour with radiation to her back. She has vomited once and experienced a brief amount of relief after but states that continues to be persistent 10/10 pain since. Any movement makes her pain significantly worse. She denies any fever or chills. She denies any jaundice. She was recently at an outside facility and had a laparoscopic cholecystectomy and was discharged on Friday. She has been in her normal state of health until just recently. Patient has a 6-month-old child and is actively breast-feeding MD complaint: abdominal pain Onset (ago): minute(s) Pain Consistency: constant Location: epigastric Severity: severe Severity scale (1-10): 10 Quality: stabbing and sharp Radiation: back Relieving factors: nothing Exacerbating factors: movement Context: recent surgery/procedure Associated symptoms: nausea and vomiting Related Data Home Medications Medication Instructions Recorded Confirmed No Known Home Medications 12/25/19 12/25/19 Allergies Allergy/AdvReac Type Severity Reaction Status Date / Time No Known Drug Allergies Allergy Verified 12/25/19 12:05 Review of Systems Constitutional Constitutional: Denies chills, Denies fatigue, Denies fever(s), Denies frequent falls, Denies lethargy and Denies weakness Eyes Eyes: Denies change in vision, Denies eye discharge, Denies irritation and Denies loss of vision ENT Ears, Nose, Mouth, and Throat: Denies change in voice, Denies dizziness, Denies neck pain, Denies sore throat and Denies throat swelling Cardiovascular Cardiovascular: Denies chest pain, Denies irregular heart rhythm, Denies lightheadedness, Denies palpitations, Denies dyspnea, Denies dyspnea on exertion and Denies orthopnea Respiratory Respiratory: Denies cough, Denies dyspnea, Denies dyspnea on exertion and Denies wheezing Gastrointestinal Gastrointestinal: Reports abdominal pain, Denies change in bowel habits, Denies diarrhea, Reports nausea and Reports vomiting Genitourinary Genitourinary: Denies hematuria, Denies flank pain, Denies urinary incontinence and Denies urinary urgency Musculoskeletal Musculoskeletal: Denies back pain, Denies muscle weakness, Denies neck pain, Denies numbness and Denies tingling Integumentary/Breasts Skin/Breast: Denies pruritus, Denies erythema, Denies rash and Denies wounds Neurologic Neurologic: Denies behavioral changes, Denies confusion, Denies dizziness, Denies frequent falls, Denies loss of vision, Denies numbness, Denies tingling and Denies weakness Psychiatric Psychiatric: Denies anxiety, Denies behavioral changes, Denies confusion, Denies depression, Denies homicidal ideation and Denies suicidal ideation Endocrine Endocrine: Denies fatigue, Denies flushing and Denies palpitations Hematologic/Lymphatic Hematologic/Lymphatic: Denies easy bruising Allergic/Immunologic Allergic/Immunologic: Denies urticaria, Denies throat swelling and Denies wheezing Patient History Medical History Acute bilateral low back pain without sciatica (Acute) Pelvic somatic dysfunction (Acute) Segmental and somatic dysfunction of abdomen and other regions (Acute) Segmental and somatic dysfunction of lumbar region (Acute) Segmental and somatic dysfunction of sacral region (Acute) Segmental and somatic dysfunction of thoracic region (Acute) Family History Mother History of hysterectomy Social History Smoking Status: Never smoker Smoking Status: Never smoker alcohol intake frequency: holidays/special occasions only Substance Use Type: does not use Exam Narrative Exam Narrative: GENERAL: [29] year old patient appears stated age. Well- nourished, well-developed patient, in obvious distress. Complaining of signi ficant pain HEAD: Atraumatic. Normocephalic. EYES: Pupils equal round and reactive. Extraocular motions intact. No scleral icterus. No injection or drainage. ENT: Nose without bleeding, purulent drainage. Throat without erythema, tonsillar hypertrophy or exudate. Airway patent. NECK: Trachea midline. Non tender CARDIOVASCULAR: Regular rate and rhythm without murmurs, gallops, or rubs. RESPIRATORY: Clear to auscultation. Breath sounds equal bilaterally. No wheezes, rales, or rhonchi. GASTROINTESTINAL: Abdomen soft, significant tenderness in epigastrium, nondistended. EXTREMITIES: No edema or joint tenderness. BACK: Nontender without deformity or crepitance. No flank tenderness. NEURO: AOx3. SKIN: No rash or erythema of visible areas Initial Vital Signs Initial Vital Signs: Vital Signs Temperature 98.1 F 12/25/19 12:00 Pulse Rate 91 H 12/25/19 12:00 Respiratory Rate 16 12/25/19 12:00 Blood Pressure 146/86 H 12/25/19 12:00 Pulse Oximetry 98 12/25/19 12:00 Course Orders Ordered: ED Orders 12/25/19 12:08 US abdomen limited Stat Complete Blood Count AUTO DIFF Stat Comprehensive Metabolic Panel Stat Lipase Stat Sodium Chloride (Normal Saline 0.9%) 1,000 mls @ 200 mls/hr IV CONT GLILIAN Last Infusion: 12/25/19 15:49 Dose: 0 mls/hr Documented by: Admin: 12/25/19 14:30 Dose: 200 mls/hr Documented by: JING Discontinued Medications Hydromorphone HCl (Dilaudid) 0.5 mg IV NOW ONE Stop: 12/25/19 14:43 Last Admin: 12/25/19 14:46 Dose: 0.5 mg Documented by: JING Sodium Chloride (Normal Saline 0.9%) 1,000 mls @ 1,000 mls/hr IV BOLUS ONE Stop: 12/25/19 13:07 Last Infusion: 12/25/19 13:22 Dose: 0 mls/hr Documented by: Admin: 12/25/19 12:13 Dose: 1,000 mls/hr Documented by: DELMAR Ketorolac Tromethamine (Toradol) 15 mg IV NOW ONE Stop: 12/25/19 12:09 Last Admin: 12/25/19 12:13 Dose: 15 mg Documented by: DELMAR Ondansetron HCl (Zofran) 4 mg IV NOW ONE Stop: 12/25/19 12:09 Last Admin: 12/25/19 12:13 Dose: 4 mg Documented by: DELMAR Consultations Consultation #1: GI (Mariusz) contacted at Prov. Agrees that patient needs ERCP. Requests call to medicine. Medicine (Fiona) happy to accept. Time: 14:05 Vital Signs Vital signs: Vital Signs - 8 hr 12/25/19 12:00 12/25/19 13:41 12/25/19 14:30 Temperature 98.1 F Pulse Rate 91 H 75 Respiratory Rate 16 Blood Pressure 146/86 H Blood Pressure [Left Arm] 129/84 138/74 Pulse Oximetry 98 97 MDM - Abdominal Pain Lab Data Result diagrams: 12/25/19 12:08 12/25/19 12:08 Labs: Lab Results 12/25/19 12/25/19 Range/Units 12:08 12:08 WBC 7.6 (4.5-11.0) X10^3/uL RBC 4.89 (4.0-5.2) X10^6/uL Hgb 14.7 (12.0-16.0) g/dL Hct 42.7 (36-46) % MCV 87.3 (80-100) fL MCH 30.0 (26-34) PG MCHC 34.4 (30-36) % RDW 13.8 (11.6-14.8) % Plt Count 283 (150-400) X10^3/uL Neut % (Auto) 75.1 H (50-75) % Lymph % (Auto) 13.8 L (25-40) % [place] % (Auto) 8.6 (3-14) % Eos % (Auto) 1.8 L (2-4) % Baso % (Auto) 0.7 (0-2) % Neut # (Auto) 5700 (3307-3499) /uL Lymph # (Auto) 1000 L (5790-4456) /uL Gentry # (Auto) 700 (0-900) /uL Eos # (Auto) 100 (0-450) /uL Baso # (Auto) 100 (0-100) /uL Sodium 139 (137-145) mmol/L Potassium 3.9 (3.4-5.1) mmol/L Chloride 102 (98-107) mmol/L Carbon Dioxide 22 (22-32) mmol/L BUN 11 (7-17) mg/dL Creatinine 0.76 (0.52-1.04) mg/dL Estimated GFR > 60.0 (>60) mL/min BUN/Creatinine Ratio 14.5 (6-22) Glucose 132 H (70-100) mg/dL Calcium 10.4 H (8.4-10.2) mg/dL Total Bilirubin 3.5 H (0.2-1.3) mg/dL AST 282 H (14-36) IU/L ALT 431 H (<35) IU/L Alkaline Phosphatase 451 H D (38-126) U/L Total Protein 9.0 H (6.3-8.2) g/dL Albumin 4.9 (3.5-5.0) g/dL Globulin 4.1 (1.7-4.1) g/dL Albumin/Globulin Ratio 1.2 (1.0-2.8) Lipase 26246 H D (23-300) U/L Imaging Data US - abdomen: Radiologist's Impression: Elizabeth Munoz 29 F [address] [address] Ultrasound Report Signed Patient: Elizabeth Munoz CMR#: [id number] : 1990Acct:[id number] Age/Sex: 29 / FDate of Service: 12/25/19 Loc: ED Accession Number: [id number] Procedure: US abdomen limited Ordering Provider: Gray Vásquez D.O. PROCEDURE: US ABDOMEN LIMITED INDICATIONS: SEVERE EPIGASTRIC PAIN.RECENT CHOLECYSTECTOMY TECHNIQUE: Real-time focused scanning was performed of the abdomen, with image documentation. COMPARISON: [facility], , US ABDOMEN COMPLETE, 12/17/2019, 12:49. FINDINGS: The gallbladder is surgically absent. The extrahepatic ducts are now dilated, previously measuring 3 mm at the common hepatic duct an 8 mm at the common bile duct, and currently measuring 9 mm with the common hepatic duct at 11 mm and the common bile duct. Dilated intrahepatic ducts. IMPRESSION: In this patient with recent cholecystectomy, a common duct stone may be present, as the patient has developed biliary ductal dilatation. Comment: MRCP may be helpful. Dictated by: Sivakumar Vidales M.D. on 12/25/2019 at 12:07 Approved by: Sivakumar Vidales M.D. on 12/25/2019 at 12:12 Critical Care Time Critical Care Time Critical Care Time: Yes Total Critical Care Time: 30 Attestation: The high probability of a clinically significant, sudden or life threatening deterioration of the [GI] system(s) required my full and direct attention, intervention and personal management. The aggregate critical care time was [30] minutes. This time is in addition to time spent performing reported procedures but includes the following: [x] Data Review and interpretation [x] Patient assessment and monitoring of vital signs [x] Documentation [x] Medication orders and management Discharge Plan Departure Patient Disposition: [facility] Clinical Impression: Choledocholithiasis Acute pancreatitis Qualifiers: Pancreatitis type: biliary Acute pancreatitis complication: unspecified Qualified Code(s): K85.10 - Biliary acute pancreatitis without necrosis or infection Prescriptions: No Action No Known Home Medications RF: 0
[2019-12-25 13:16] LABS: Lipase 97391 U/L (23-300)
[2019-12-25 13:41] VITALS: BP 129/84; PULSE 75; O2SAT 97
[2019-12-25 14:30] VITALS: BP 138/74
[2019-12-25] MEDS: SODIUM CHLORIDE 0.9% 1,000 ML 200 ML IV (14:30)
[2019-12-25] MEDS: HYDROMORPHONE 0.5 MG INJ IV (14:46)
[2019-12-25 15:55] VITALS: PULSE 76; RESP 12; O2SAT 96
--- NOTE | 2019-12-25 15:58 | PC.NURSE ---
Pt was given 1 Liter O2 post pain medication, sats 86% while sleeping. Report given to RN at [facility].
== END 2019-12-25 15:50 | disposition short-term general hospital (02) ==
PROVIDERS: Emergency Provider Emergency Medicine
DX: K80.50 Calculus of bile duct without cholangitis or cholecystitis without obstruction (principal); K85.10 Biliary acute pancreatitis without necrosis or infection
CPT/HCPCS: 36415; 76705; 80053; 83690; 85025; 96361; 96374; 96375; 99284; 99291; J1170; J1885; J2405

== ENCOUNTER → 2020-09-05 10:41 | Outpatient (CLI) | payer OTHER, SELFPAY ==
[2020-09-05 12:29] LABS: HCG Quantitative /Beta subunit 9.4 mIU/mL
== END ==
PROVIDERS: PCP Family Medicine; Referring Provider Family Medicine; Visit Provider Family Medicine
DX: Z32.00 Encounter for pregnancy test, result unknown (principal)
CPT/HCPCS: 36415; 84702

== ENCOUNTER → 2020-09-08 10:20 | Outpatient (CLI) | payer OTHER, SELFPAY ==
[2020-09-08 12:14] LABS: HCG Quantitative /Beta subunit < 2.4 mIU/mL
== END ==
PROVIDERS: PCP Family Medicine; Referring Provider Family Medicine; Visit Provider Family Medicine
DX: E34.9 Endocrine disorder, unspecified (principal); Z32.00 Encounter for pregnancy test, result unknown
CPT/HCPCS: 36415; 84702

== ENCOUNTER → 2021-04-17 18:38 | Outpatient (CLI) | payer OTHER, SELFPAY | PROVIDERS: PCP Family Medicine; Visit Provider Physician Assistant | DX: J02.9 Acute pharyngitis, unspecified (principal) | CPT/HCPCS: 87070 ==

== ENCOUNTER → 2021-04-21 09:00 | Outpatient (CLI) | payer OTHER, SELFPAY ==
[2021-04-21 09:55] LABS: COVID19 -Nasal RAPID Negative (Negative)
== END ==
PROVIDERS: PCP Family Medicine; Visit Provider Physician Assistant
DX: J02.9 Acute pharyngitis, unspecified (principal); R05 Cough; Z20.822 Contact with and (suspected) exposure to COVID-19
CPT/HCPCS: 87070; 87635